=== PATIENT | female | born 1985 | race Caucasian/White ===

== ENCOUNTER 2017-10-27 12:10 | Emergency (ER) | payer MEDICAID, SELFPAY ==
[2017-10-27 12:11] VITALS: BP 135/92; PULSE 118; RESP 15; TEMP 35.7; BMI 27.2
--- NOTE | 2017-10-27 12:38 | CT_ITS ---
STUDY: CT ABDOMEN AND PELVIS WITHOUT CONTRAST REASON FOR EXAM: Female, 32 years old. Right-sided abdominal pain. RADIATION DOSAGE (If Supplied By Facility): CTDIvol = ( 7.47 ) mGy, DLP = ( 345.09 ) mGycm TECHNIQUE: Transaxial images were obtained from the dome of the diaphragm to the symphysis pubis without oral contrast, and without intravenous contrast. Sagittal and coronal images were reconstructed. Individualized dose optimization techniques were used for this CT. COMPARISON: None. FINDINGS: The visualized lung bases are unremarkable. The visualized portions of the heart are within normal limits. Normal liver. Normal gallbladder and extrahepatic biliary system. Normal spleen. Normal pancreas. Normal bilateral adrenal glands. Mild degree of right hydronephrosis and the right hydroureter down to the ureterovesical junction on the right side. There is a 2.7 mm calculus at the base of the bladder on the right side most likely secondary to a recently passed calculus. There is also evidence of a 4.9 mm calculus in the mid portion of the right kidney. 2 adjacent nonobstructive intrarenal calculi in the midpole of the left kidney. There is a small hiatal hernia. Normal small intestine. Normal colon. There is non-visualization of the appendix. Normal abdominal aorta. Normal inferior vena cava. Normal retroperitoneum. Normal urinary bladder. There is absence of the uterus consistent with a prior hysterectomy. Normal abdominal wall. Normal osseous structures. CT/Abdomen/Pelvis without Cont IMPRESSION: Nonobstructive bilateral intrarenal calculi. Right hydronephrosis and hydroureter due to a recently passed 2.7 mm calculus at the base of the bladder on the right side. Electronically Signed: Wilton Vega MD at 13:59 EDT Tel [phone], Service support ,
[2017-10-27 12:52] LABS: Mucous, Urine 0 SEEN /hpf (<or=2+); White Blood Cells 0 SEEN /hpf (0-5)
[2017-10-27 12:54] LABS: Color, Urine Yellow (Yellow); Glucose, Dipstick Normal (Normal); Leukocyte Esterase-Dipstick Negative /ul (Negative); Nitrite-Dipstick Negative (Negative); Occult Blood-Urine 25 /ul (Negative); Protein-Dipstick 15 mg/dl (Negative); Specific Gravity, Urine 1.025 (1.002-1.030); Urine Bilirubin Dipstick Negative (Negative); Urine Clarity Clear (Clear); Urine Urobilinogen Normal (Normal)
[2017-10-27 13:03] LABS: Bacteria 1+ /hpf (None Seen); Ketone-Dipstick 150 mg/dl (Negative); Red Blood Cells-Urine 0-5 SEEN /hpf (0-5); Squamous Epithelial Cells - UA 0-5 SEEN /hpf (5-10)
[2017-10-27] MEDS: 0.9% Normal Saline 1,000 ML 250 ML IV (13:04)
[2017-10-27] MEDS: Ketorolac 30 MG/ML Syringe IV (13:04)
[2017-10-27] MEDS: Ondansetron 4 MG/2 ML Vial IV (13:04)
--- NOTE | 2017-10-27 14:07 | ED.VISSUMM ---
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 Straight around toward the right lower abdomen. Is a sharp pain is 9 out of 10 at worst and 510 currently. Is worsened by movement. Is relieved by ibuprofen. She had nausea without vomiting. No diarrhea. Last problem was 2 days ago and typically she goes every other day. No blood in her stools or black tarry stools. No dysuria or frequency. However, the patient does report that she has a sensation of pressure to urinate. She is status post hysterectomy. Physical Examination: Vitals: Stable. Afebrile. General: Well-nourished and well-developed. Head: Normocephalic atraumatic. Neck: Supple, no lymphadenopathy. No JVD. Nontender. Cardiovascular: Regular rate and rhythm. No murmurs. Respiratory: No respiratory distress. Clear to auscultation bilaterally. Abdominal: Soft, nontender, nondistended, normal bowel sounds. No guarding, rebound, or peritoneal signs. Back: Nontender. Extremities: Nontender, no edema. Skin: Normal color, no rash. Neurologic: Alert and oriented ?3. Cranial nerves II through XII are intact. Normal strength and sensation. Psych: Normal affect. Test Results: Urinalysis is positive for blood and ketones. CT flank shows nonobstructive bilateral renal calculi. Right hydronephrosis/ureter secondary to a recently passed 2.7 mm calculus at the base of the bladder on the right. Emergency Department Course and Treatment: Patient treated Toradol and Zofran. She is resting comfortably. Treatment Plan: Patient will be discharged [facility] Return to the emergency department for any worsening symptoms. Disposition: To home in improved and stable condition. Impression: 1. Right ureterolithiasis. This note was generated with [employer] dictation software. It may contain incorrect words, spelling, and punctuation that were not noted in review of the chart prior to signing ED Disposition - Plan for ED Patient: Chief Complaint: Abd Pain Instructions: ED Stone Renal Passed Prescriptions: Hydrocodone Bitart/Apap 5-325 [[place] 5/325] 1 - 2 tablet PO Q4H PRN PRN 3 Days #12 tablet PRN Reason: Pain Naproxen [Naprosyn] 500 mg PO BID PRN #20 tablet Referrals: Cong Márquez MD [STAFF PHYSICIAN] - Zuly Murrieta [NON-STAFF] - As Needed
--- NOTE | 2017-10-27 14:10 | ED.DCSUM_ITS ---
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 Straight around toward the right lower abdomen. Is a sharp pain is 9 out of 10 at worst and 510 currently. Is worsened by movement. Is relieved by ibuprofen. She had nausea without vomiting. No diarrhea. Last problem was 2 days ago and typically she goes every other day. No blood in her stools or black tarry stools. No dysuria or frequency. However, the patient does report that she has a sensation of pressure to urinate. She is status post hysterectomy. Physical Examination: Vitals: Stable. Afebrile. General: Well-nourished and well-developed. Head: Normocephalic atraumatic. Neck: Supple, no lymphadenopathy. No JVD. Nontender. Cardiovascular: Regular rate and rhythm. No murmurs. Respiratory: No respiratory distress. Clear to auscultation bilaterally. Abdominal: Soft, nontender, nondistended, normal bowel sounds. No guarding, rebound, or peritoneal signs. Back: Nontender. Extremities: Nontender, no edema. Skin: Normal color, no rash. Neurologic: Alert and oriented ?3. Cranial nerves II through XII are intact. Normal strength and sensation. Psych: Normal affect. Test Results: Urinalysis is positive for blood and ketones. CT flank shows nonobstructive bilateral renal calculi. Right hydronephrosis/ureter secondary to a recently passed 2.7 mm calculus at the base of the bladder on the right. Emergency Department Course and Treatment: Patient treated Toradol and Zofran. She is resting comfortably. Treatment Plan: Patient will be discharged [facility]. Return to the emergency department for any worsening symptoms. Disposition: To home in improved and stable condition. Impression: 1. Right ureterolithiasis. This note was generated with [employer] dictation software. It may contain incorrect words, spelling, and punctuation that were not noted in review of the chart prior to signing ED Disposition - Plan for ED Patient: Chief Complaint: Abd Pain Instructions: ED Stone Renal Passed Prescriptions: Hydrocodone Bitart/Apap 5-325 [[place] 5/325] 1 - 2 tablet PO Q4H PRN PRN 3 Days # 12 tablet PRN Reason: Pain Naproxen [Naprosyn] 500 mg PO BID PRN #20 tablet Referrals: Cong Márquez MD [STAFF PHYSICIAN] - Zuly Murrieta [NON-STAFF] - As Needed
[2017-10-27 14:48] VITALS: BP 117/75; PULSE 71; RESP 16; O2SAT 98
== END 2017-10-27 14:49 | disposition home or self-care (01) ==
PROVIDERS: Emergency Provider Emergency Medicine
DX: N13.2 Hydronephrosis with renal and ureteral calculous obstruction (principal); Z90.710 Acquired absence of both cervix and uterus; F17.200 Nicotine dependence, unspecified, uncomplicated
CPT/HCPCS: 74176; 81001; 96361; 96374; 96375; 99283; J7030; J2405